=== PATIENT | male | born 1940 | race Caucasian/White ===

== ENCOUNTER 2017-03-13 21:18 | Observation (INO) | payer OTHER ==
[2017-03-13] MEDS ORDERED: ONDANSETRON 4 MG/2 ML VIAL IVP ONE ×2 (21:40→22:27)
[2017-03-13] MEDS ORDERED: NS 1,000 ML IV ONE (21:40)
--- NOTE | 2017-03-13 21:41 | EDPHY ---
H & P Stated Complaint: vomiting, L cochlear implant yesterday, epigastric pain - Personal History Current Tetanus/Diphtheria Vaccine: Yes Current Tetanus Diphtheria and Acellular Pertussis (TDAP): Yes Tetanus Vaccine Date: 2007 - Medical/Surgical History Hx Asthma: No Hx Chronic Respiratory Disease: No Hx Diabetes: No Hx Cardiac Disease: No Hx Renal Disease: No Hx Cirrhosis: No Hx Alcoholism: No Hx HIV/AIDS: No Hx Splenectomy or Spleen Trauma: No Other PMH: HX: STROKE, TIA, HIP REPLACEMENT, HIGH CHOLESTEROL, HERNIA, ABD MESH , HTN, hard of hearing, cochlear implant - Social History Smoking Status: Former smoker Time Seen by Provider: 03/13/17 21:31 HPI/ROS: Chief Complaint: Vomiting HPI: 77 year old male who had a cochlear implant placed yesterday at [facility]. He was discharged 2 o'clock this afternoon on oxycodone. Patient has had multiple episodes of nausea and vomiting. He was also feeling constipated so he took a half a do clock suppository. He had a partial bowel motions so he took another suppository and had a very large bowel movement at that time. No headache. Is having some lightheadedness and vertiginous symptoms which have been persistent since his surgery and he was told to expect. Room is not spinning. Mild epigastric pain only associated with vomiting. No chest pain or shortness of breath. Has been ambulating unassisted without any difficulties. Patient states he had similar episode after taking narcotics after hip surgery in the past. ROS: 10 point Review of Systems is negative except as noted in the HPI. PMH: Hypertension, hypercholesterol, coronary artery disease Social History: No smoking, no alcohol, no recreational drug use Family History: non-contributory Physical Exam: Gen: Awake, Alert, No Distress HEENT: He has well-appearing scar posterior to his left ear with no erythema, no dehiscence, no discharge. Nose: no rhinorrhea Eyes: PERRLA, EOMI Mouth: Moist mucosa Neck: Supple, no JVD Chest: nontender, lungs clear to auscultation Heart: S1, S2 normal, no murmur Abd: Soft, non-tender, no guarding Back: no CVA tenderness, no midline tenderness Ext: no edema, non-tender Skin: no rash Neuro: CN II-XII intact, Sensation grossly intact, Strength 5/5 in bilateral upper and lower extremities (Ming La) Constitutional: Initial Vital Signs Temperature (C) 36.7 C 03/13/17 21:20 Heart Rate 59 L 03/13/17 21:20 Respiratory Rate 16 03/13/17 21:20 Blood Pressure 160/73 H 03/13/17 21:20 O2 Sat (%) 89 L 03/13/17 21:20 O2 Delivery Mode Room Air O2 (L/minute) 2 Allergies/Adverse Reactions: lovastatin [Lovastatin] Allergy (Mild, Verified 09/30/09 06:56) MUSCLE SORENESS metoprolol Allergy (Verified 03/13/17 21:31) pravastatin Allergy (Verified 03/13/17 21:31) "SEVERAL STATINS" Allergy (Unknown, Uncoded 03/13/17 23:34) Home Medications: Medication Instructions Recorded Aspirin 81mg (OTC) 03/14/14 Crestor 03/14/14 Plavix (RX) 03/14/14 Remeron 03/14/14 Metoprolol Tartrate [Lopressor] 25 mg PO BID 04/10/15 "Cholest Off" 03/13/17 Co Q-10 100 mg Softgel 03/13/17 Fluticasone Nasal 03/13/17 Glucosamine 03/13/17 [place]-Abwnzuj-Hnmwotty Tablet 03/13/17 Nitroglycerin 03/13/17 [place]-3S/Dha/Epa/Fish Oil 03/13/17 Senna-Docusate Sodium Tablet 03/13/17 Medical Decision Making ED Course/Re-evaluation: Patient is improved after IV fluids and antiemetics. Will p.o. challenge Patient with nausea vomiting status post oral narcotics for cochlear implant surgery. He has no headache. No signs of infection at this time. No worsening vertiginous symptoms since surgery. Has had similar symptoms in the past narcotics. Patient is improved here with fluids and antiemetics and tolerating p.o.. He has been instructed to return for any worsening symptoms at all. Otherwise with follow-up as an outpatient. (Ming La) 11:15 p.m. the patient failed p.o. challenge. He is retching. He and his are asking to stay in the hospital. I have paged hospital service for admission. I will treat him with Reglan. Spoke with Dr. Summer Sethi who will admit. (Abdullahi Blunt) Differential Diagnosis: Partial list of the Differential diagnosis considered include but were not limited to; hyperemesis, medication reaction, electrolyte abnormality, vertigo and although unlikely based on the history and physical exam, I also considered infection, hemorrhage. (Abdullahi Blunt) - Data Points Laboratory Results: Laboratory Results 03/13/17 21:35 03/13/17 21:35 03/13/17 03/13/17 21:35 21:35 WBC 11.39 10^3/uL H 10^3/uL (3.80-9.50) RBC 5.27 10^6/uL 10^6/uL (4.40-6.38) Hgb 16.5 g/dL g/dL (13.7-17.5) Hct 49.2 % % (40.0-51.0) MCV 93.4 fL fL (81.5-99.8) MCH 31.3 pg pg (27.9-34.1) MCHC 33.5 g/dL g/dL (32.4-36.7) RDW 13.2 % % (11.5-15.2) Plt Count 215 10^3/uL 10^3/uL (150-400) MPV 11.9 fL H fL (8.7-11.7) Neut % (Auto) 73.4 % % (39.3-74.2) Lymph % (Auto) 14.1 % L % (15.0-45.0) [place] % (Auto) 11.4 % % (4.5-13.0) Eos % (Auto) 0.5 % L % (0.6-7.6) Baso % (Auto) 0.2 % L % (0.3-1.7) Nucleat RBC Rel Count 0.0 % % (0.0-0.2) Absolute Neuts (auto) 8.35 10^3/uL H 10^3/uL (1.70-6.50) Absolute Lymphs (auto) 1.61 10^3/uL 10^3/uL (1.00-3.00) Absolute Monos (auto) 1.30 10^3/uL H 10^3/uL (0.30-0.80) Absolute Eos (auto) 0.06 10^3/uL 10^3/uL (0.03-0.40) Absolute Basos (auto) 0.02 10^3/uL 10^3/uL (0.02-0.10) Absolute Nucleated RBC 0.00 10^3/uL 10^3/uL (0-0.01) Immature Gran % 0.4 % % (0.0-1.1) Immature Gran # 0.05 10^3/uL 10^3/uL (0.00-0.10) Sodium 139 mEq/L mEq/L (134-144) Potassium 4.5 mEq/L mEq/L (3.5-5.2) Chloride 101 mEq/L mEq/L (97-110) Carbon Dioxide 27 mEq/l mEq/l (22-31) Anion Gap 11 mEq/L mEq/L (8-16) BUN 20 mg/dL mg/dL (7-23) Creatinine 0.9 mg/dL mg/dL (0.7-1.3) Estimated GFR > 60 Glucose 117 mg/dL H mg/dL (70-100) Calcium 9.6 mg/dL mg/dL (8.5-10.4) Medications Given: Discontinued Medications Sodium Chloride (Ns) 1,000 mls @ 0 mls/hr IV ONCE ONE PRN Reason: Wide Open Stop: 03/13/17 21:41 Last Admin: 03/13/17 21:48 Dose: 1,000 mls Metoclopramide HCl (Reglan Injection) 10 mg IVP EDNOW ONE Stop: 03/13/17 23:13 Last Admin: 03/13/17 23:32 Dose: Not Given Metoclopramide HCl (Reglan Injection) 10 mg IVP EDNOW ONE Stop: 03/13/17 23:13 Last Admin: 03/13/17 23:32 Dose: 10 mg Ondansetron HCl (Zofran) 4 mg IVP EDNOW ONE Stop: 03/13/17 21:41 Last Admin: 03/13/17 21:48 Dose: 4 mg Ondansetron HCl (Zofran) 4 mg IVP EDNOW ONE Stop: 03/13/17 22:28 Last Admin: 03/13/17 22:28 Dose: 4 mg Ondansetron HCl (Zofran Odt 4 Mg Prepack#2) 1 btl TINO PINO ONE Stop: 03/13/17 22:42 Last Admin: 03/13/17 23:12 Dose: Not Given Departure - Departure Disposition: [facility] Inpatient Acute Clinical Impression: Nausea & vomiting Qualifiers: Vomiting type: unspecified Vomiting Intractability: intractable Qualified Code( s): R11.2 - Nausea with vomiting, unspecified Condition: Good
[2017-03-13] MEDS ORDERED: ONDANSETRON 4 MG/2 ML VIAL ONE (22:24)
[2017-03-13] MEDS ORDERED: ONDANSETRON 4MG PREPACK#2 BTL TAKEHOME ONE (22:41)
[2017-03-13] MEDS ORDERED: METOCLOPRAMIDE 10 MG/2 ML VIAL IVP ONE ×2 (23:12)
[2017-03-13] MEDS ORDERED: ONDANSETRON DISINTEGRATING 4 MG TAB PO PRN (23:19)
[2017-03-13] MEDS ORDERED: PROMETHAZINE HCL 25 MG TAB PO PRN (23:19)
[2017-03-13] MEDS ORDERED: ONDANSETRON 4 MG/2 ML VIAL IVP PRN (23:19)
[2017-03-13] MEDS ORDERED: ACETAMINOPHEN 325 MG TAB PO PRN (23:19)
[2017-03-13 23:20] LABS: % IMMATURE GRANULYOCYTES 0.4 % (0.0-1.1); ABSOLUTE IMMATURE GRANULOCYTES 0.05 10^3/uL (0.00-0.10); ADD DIFF? NO; ADD MORPH? NO; ADD SCAN? NO; ATYPICAL LYMPHOCYTE FLAG 0 (0-99); FRAGMENT RBC FLAG 0 (0-99); HEMATOCRIT 49.2 % (40.0-51.0); HEMOGLOBIN 16.5 g/dL (13.7-17.5); LEFT SHIFT FLG 0 (0-99); LIPEMIA HEMOLYSIS FLAG 80 (0-99); MEAN CELL HEMOGLOBIN 31.3 pg (27.9-34.1); MEAN CELL HEMOGLOBIN CONCENTR. 33.5 g/dL (32.4-36.7); MEAN CELL VOLUME 93.4 fL (81.5-99.8); MEAN PLATELET VOLUME 11.9 fL (8.7-11.7); PLATELET CLUMPS FLAG 0 (0-99); PLATELET COUNT 215 10^3/uL (150-400); RED BLOOD CELL COUNT 5.27 10^6/uL (4.40-6.38); RED CELL DISTRIBUTION WIDTH 13.2 % (11.5-15.2)
[2017-03-13 23:29] LABS: ANION GAP 11 mEq/L (8-16); CALCIUM 9.6 mg/dL (8.5-10.4); CARBON DIOXIDE 27 mEq/l (22-31); CHLORIDE 101 mEq/L (97-110); CREATININE 0.9 mg/dL (0.7-1.3); GLOMERULAR FILTRATION RATE > 60; GLUCOSE 117 mg/dL (70-100); POTASSIUM 4.5 mEq/L (3.5-5.2); SODIUM 139 mEq/L (134-144)
--- NOTE | 2017-03-14 00:19 | PDEACUHP ---
History and Physical - Chief Complaint N/V - History of Present Illness 77 yo male with h/o htn, hyperlipidemia, and prior CVA who underwent cochlear implant yesterday for hearing loss at [facility] presents to ED with nausea and vomiting. He was discharged today and received one dose of oral oxycodone in the hospital prior to d/c. He has not taken any more opiates today , but took a dose of his cephalexin, prescribed post-operatively. He began vomiting at home and his brought him to the ED. He has also complained of vertigo today, but none currently. He received several doses of anti-emetics in the ED and continues to feel poorly. He denies fevers/chills, headache, CP or SOB. He complains of epigastric pain in the setting of vomiting. He denies hematemesis or coffee ground emesis. Last BM was today and was formed. He is admitted to the hospital for further management of his nausea and vomiting. History Information - Allergies/Home Medication List Allergies/Adverse Reactions: lovastatin [Lovastatin] Allergy (Mild, Verified 09/30/09 06:56) MUSCLE SORENESS metoprolol Allergy (Verified 03/13/17 21:31) pravastatin Allergy (Verified 03/13/17 21:31) "SEVERAL STATINS" Allergy (Unknown, Uncoded 03/13/17 23:34) Home Medications: Aspirin 81mg (OTC) 03/14/14 [Last Taken Unknown] Crestor 03/14/14 [Last Taken Unknown] Plavix (RX) 03/14/14 [Last Taken Unknown] Remeron 03/14/14 [Last Taken Unknown] Metoprolol Tartrate [Lopressor] 25 mg PO BID 04/10/15 [Last Taken Unknown] "Cholest Off" 03/13/17 [Last Taken Unknown] Co Q-10 100 mg Softgel 03/13/17 [Last Taken Unknown] Fluticasone Nasal 03/13/17 [Last Taken Unknown] Glucosamine 03/13/17 [Last Taken Unknown] Gztui-Eptbkip-Iutdhueq Tablet 03/13/17 [Last Taken Unknown] Nitroglycerin 03/13/17 [Last Taken Unknown] [place]-3S/Dha/Epa/Fish Oil 03/13/17 [Last Taken Unknown] Senna-Docusate Sodium Tablet 03/13/17 [Last Taken Unknown] I have personally reviewed and updated: family history, medical history, social history, surgical history - Past Medical History CVA, hearing deficit, hypertension, hyperlipidemia, TIA - Surgical History Reports: hernia repair Additional surgical history: cochlear implant 03/12/2017 - Family History Positive for: non-pertinent - Social History Smoking Status: Former smoker Alcohol Use: None Drug Use: None Additional social history: Lives independently with his who is present at bedside. Review of Systems ROS: 10pt was reviewed & negative except for what was stated in HPI & below Physical Exam Temp Pulse Resp BP Pulse Ox 36.7 C 59 L 16 160/73 H 96 03/13/17 21:20 03/13/17 21:20 03/13/17 21:20 03/13/17 21:20 03/13/17 21:41 Constitutional: no apparent distress Eyes: PERRL, anicteric sclera, EOMI Ears, Nose, Mouth, Throat: moist mucous membranes, hard of hearing, other (left posterior auricular incision over left temporal region is c/d/i without erythema or purulence) Cardiovascular: regular rate and rhythym, no murmur, rub, or gallop Respiratory: no respiratory distress, clear to auscultation Gastrointestinal: normoactive bowel sounds, soft, non-tender abdomen Skin: warm Musculoskeletal: full muscle strength Neurologic: AAOx3 Psychiatric: other (sedated) Lab Data & Imaging Review 03/13/17 21:35 03/13/17 21:35 WBC 11.39 10^3/uL (3.80-9.50) H 03/13/17 21:35 RBC 5.27 10^6/uL (4.40-6.38) 03/13/17 21:35 Hgb 16.5 g/dL (13.7-17.5) 03/13/17 21:35 Hct 49.2 % (40.0-51.0) 03/13/17 21:35 MCV 93.4 fL (81.5-99.8) 03/13/17 21:35 MCH 31.3 pg (27.9-34.1) 03/13/17 21:35 MCHC 33.5 g/dL (32.4-36.7) 03/13/17 21:35 RDW 13.2 % (11.5-15.2) 03/13/17 21:35 Plt Count 215 10^3/uL (150-400) 03/13/17 21:35 MPV 11.9 fL (8.7-11.7) H 03/13/17 21:35 Neut % (Auto) 73.4 % (39.3-74.2) 03/13/17 21:35 Lymph % (Auto) 14.1 % (15.0-45.0) L 03/13/17 21:35 [place] % (Auto) 11.4 % (4.5-13.0) 03/13/17 21:35 Eos % (Auto) 0.5 % (0.6-7.6) L 03/13/17:35 Baso % (Auto) 0.2 % (0.3-1.7) L 03/13/17:35 Nucleat RBC Rel Count 0.0 % (0.0-0.2) 03/13/17 21:35 Absolute Neuts (auto) 8.35 10^3/uL (1.70-6.50) H 03/13/17 21:35 Absolute Lymphs (auto) 1.61 10^3/uL (1.00-3.00) 03/13/17 21:35 Absolute Monos (auto) 1.30 10^3/uL (0.30-0.80) H 03/13/17 21:35 Absolute Eos (auto) 0.06 10^3/uL (0.03-0.40) 03/13/17 21:35 Absolute Basos (auto) 0.02 10^3/uL (0.02-0.10) 03/13/17 21:35 Absolute Nucleated RBC 0.00 10^3/uL (0-0.01) 03/13/17 21:35 Immature Gran % 0.4 % (0.0-1.1) 03/13/17:35 Immature Gran # 0.05 10^3/uL (0.00-0.10) 03/13/17 21:35 Sodium 139 mEq/L (134-144) 03/13/17 21:35 Potassium 4.5 mEq/L (3.5-5.2) 03/13/17 21:35 Chloride 101 mEq/L (97-110) 03/13/17 21:35 Carbon Dioxide 27 mEq/l (22-31) 03/13/17 21:35 Anion Gap 11 mEq/L (8-16) 03/13/17 21:35 BUN 20 mg/dL (7-23) 03/13/17 21:35 Creatinine 0.9 mg/dL (0.7-1.3) 03/13/17 21:35 Estimated GFR > 60 03/13/17 21:35 Glucose 117 mg/dL (70-100) H 03/13/17 21:35 Calcium 9.6 mg/dL (8.5-10.4) 03/13/17 21:35 Assessment & Plan Assessment: Nausea & vomiting with vertigo s/p cochlear implant POD #1 - suspect inner ear disturbance given recent surgery. He did have one dose of oral oxycodone this am prior to hospital dc as well as oral cephalexin, both of which may have some GI side effects. Given his recent surgery with vertigo, N/V, will check a head CT to ensure no post-op complication which I suspect is unlikely. Admit for supportive care, anti-emetics. He received 2 L NS in ED and appears euvolemic, will defer further IVF's for now. Hypertension - resume home meds once med rec completed Hyperlipidemia - resume statin H/O CVA / TIA - cont ASA, statin, awaiting med rec DVT PPLX - SCD's for now, consider Lovenox if he requires longer hospitalization Full code Dispo - obs / eacu, can likely dc home in am if symptoms improved
[2017-03-14] MEDS: FAMOTIDINE 20 MG/NACL 50 ML IV SCH ×2 (00:51→08:09)
[2017-03-14 05:36] LABS: HEMATOCRIT 43.2 % (40.0-51.0); HEMOGLOBIN 14.2 g/dL (13.7-17.5); MEAN CELL HEMOGLOBIN 31.3 pg (27.9-34.1); MEAN CELL HEMOGLOBIN CONCENTR. 32.9 g/dL (32.4-36.7); MEAN CELL VOLUME 95.2 fL (81.5-99.8); RED BLOOD CELL COUNT 4.54 10^6/uL (4.40-6.38); RED CELL DISTRIBUTION WIDTH 13.2 % (11.5-15.2)
[2017-03-14 08:54] VITALS: BP 141/72; PULSE 55; RESP 18; TEMP 98.9; O2SAT 88
[2017-03-14] MEDS ORDERED: SENNOSIDES/DOCUSATE SODIUM TAB PO PRN (09:05)
[2017-03-14] MEDS ORDERED: NITROGLYCERIN 0.4 MG BTL SL PRN (09:05)
[2017-03-14] MEDS ORDERED: TRIAMCINOLONE 0.1% 15 GM CRTUBE TP PRN (09:05)
[2017-03-14] MEDS ORDERED: FLUTICASONE NASAL 120 SPRAYS/16 GM MDI EACHNARE PRN (09:05)
[2017-03-14] MEDS ORDERED: HYDROCODONE/APAP 5/325 TAB PO PRN (09:05)
[2017-03-14] MEDS ORDERED: CEPHALEXIN 500 MG CAP PO SCH (12:00)
--- NOTE | 2017-03-14 12:11 | HOSPPROG ---
Hospitalist Progress Note Assessment/Plan: #Vertigo: due to cochlear implant/opioids. Resolved. CTH negative #CVA: home meds #Benign HTN: resume BP meds #Disp: DC today Subjective: feeling much better today Objective: Vital Signs Temp Pulse Resp BP Pulse Ox 37.2 C 55 L 18 141/72 H 88 L 03/14/17 08:00 03/14/17 08:00 03/14/17 08:00 03/14/17 08:00 03/14/17 08:00 Laboratory Results 03/14/17 05:20 03/13/17 03/14/17 03/15/17 05:59 05:59 05:59 Intake Total 1000 Balance 1000 - Physical Exam Constitutional: no apparent distress, other (appears tired) Eyes: PERRL Ears, Nose, Mouth, Throat: moist mucous membranes Cardiovascular: regular rate and rhythym Respiratory: no respiratory distress Gastrointestinal: normoactive bowel sounds Genitourinary: no bladder fullness Skin: warm Musculoskeletal: full muscle strength Neurologic: AAOx3 ICD10 Worksheet Patient Problems: Problems Problem Status Onset Nausea & vomiting Acute
--- NOTE | 2017-03-14 12:43 | GDS ---
[f rep st] DISCHARGE SUMMARY DISCHARGE DIAGNOSES: 1. Nausea, vomiting. 2. Vertigo. 3. Recent cochlear implant. 4. Benign hypertension. 5. Hyperlipidemia. 6. History of cerebrovascular accident/transient ischemic attack. HISTORY OF PRESENT ILLNESS: Patient is a 77-year-old male with history of hypertension, hyperlipidemia, prior stroke, who underwent cochlear implant the day prior to admission for hearing loss at [facility]. He presented here with sudden onset of nausea and vomiting. Prior to discharge from [facility], he received 1 dose of oxycodone. He had not taken any more at home but did take a dose of Keflex. He also noted vertigo. He received several doses of antiemetics in the emergency room but continued to feel poorly. Thus, he was admitted for symptom control. HOSPITAL COURSE BY PROBLEM: 1. Vertigo/nausea, vomiting: Secondary to inner ear disturbance with recent surgery. I suspect that narcotics also played a role. This morning, he tolerated breakfast without issue and wishes to go home. I provided Zofran as needed. CT head was negative. 2. Benign hypertension. Continue home medications. 3. Hyperlipidemia. Statin. 4. History of CVA/TIA. Aspirin, statin. DISPOSITION: Patient is stable for discharge. FOLLOWUP: With his primary care physician. /[id number]/MODL MTDD
[2017-03-14] MEDS ORDERED: NON-FORMULARY NEW DRUG (Mirtazapine [Mirtazapine] 15 MG) PO SCH (21:00)
[2017-03-14] MEDS ORDERED: METOPROLOL TARTRATE 25 MG TAB PO SCH (21:00)
[2017-03-14] MEDS ORDERED: MIRTAZAPINE 15 MG TAB PO SCH (21:00)
[2017-03-15] MEDS ORDERED: CLOPIDOGREL BISULFATE 75 MG TAB PO SCH (09:00)
[2017-03-15] MEDS ORDERED: Herbals/Supplements -Info Only PO SCH (09:00)
[2017-03-15] MEDS ORDERED: MULTIVITAMINS W-MINERALS 1 EACH TAB PO SCH (09:00)
[2017-03-15] MEDS ORDERED: ROSUVASTATIN CALCIUM 20 MG TAB PO SCH (09:00)
[2017-03-15] MEDS ORDERED: [UNRECOGNIZED DRUG - OTHER] PO SCH (09:00)
[2017-03-15] MEDS ORDERED: ASPIRIN EC 81 MG TAB PO SCH (09:00)
[2017-03-15] MEDS ORDERED: GLUCOSAMINE SULF 500 MG CAP PO SCH (09:00)
== END 2017-03-14 10:52 | disposition home or self-care (01) ==
LOC: F1N 03-14 00:25
PROVIDERS: ADMIT Hospitalist; ATTEND Internal Medicine
DX: R11.2 Nausea with vomiting, unspecified (principal); R42 Dizziness and giddiness; Z96.21 Cochlear implant status; H90.6 Mixed conductive and sensorineural hearing loss, bilateral; I10 Essential (primary) hypertension; E78.5 Hyperlipidemia, unspecified; I25.10 Atherosclerotic heart disease of native coronary artery without angina pectoris; Z86.73 Personal history of transient ischemic attack (TIA), and cerebral infarction without residual deficits; Z95.1 Presence of aortocoronary bypass graft; Z96.649 Presence of unspecified artificial hip joint
CPT/HCPCS: 70450; G0378; J2405; J2765; 96374